=== PATIENT | male | born 1950 | race African-American/Black ===

== ENCOUNTER 2016-09-22 00:41 | Emergency (ER) | payer OTHER ==
[~2016-09-22] VITALS: Ht 180.3 cm; Wt 127.7 kg
[~2016-09-22 00:41] MED LIST: ALLERGY RELIEF10 M1 PO; ASPIR-LOW81 MG PO; CLARITIN10 M3 PO; CORRECTOL5 M1 PO; DILTIAZEM 24HR180 MG PO; FENOFIBRATE145 M1 PO; HYDROCHLOROTHIA25 MG PO; LEVOTHYROXINE50 MCG PO; MIRALAX17 GM PO; NOVOLIN N100 UNITS/ SC; NOVOLIN,HU100 UNITS1 SC; NOVOLOG PE100 UNITS/ SC; OMEPRAZOLE20 MG PO; SIMVASTATIN20 MG PO; TENORMIN25 MG PO; ULTRACET1 TABLET PO; VENTOLIN HFA18 GM IH; VITAMIN D1000 INTUN PO; ZOFRAN4 MG PO
[2016-09-22 00:51] VITALS: BP 150/89
[2016-09-22] MEDS ORDERED: GENTAMICIN SULFA5 ML BOTH EYES (02:47)
[2016-09-22] MEDS ORDERED: PERMETHRIN118 ML TP (02:47)
== END 2016-09-22 03:31 | disposition home or self-care (01) ==
LOC: EME 00:41
DX: H10.9 Unspecified conjunctivitis (principal); B86 Scabies; Z79.82 Long term (current) use of aspirin; Z79.4 Long term (current) use of insulin
CPT/HCPCS: 99281; 99283

== ENCOUNTER 2018-01-28 11:42 | Emergency (ER) | payer OTHER ==
[~2018-01-28] VITALS: Ht 177.8 cm; Wt 114.2 kg
[~2018-01-28 11:42] MED LIST changes: +GENTAMICIN SULFA5 ML BOTH EYES; +PERMETHRIN118 ML TP
[2018-01-28 12:58] LABS: APPEARANCE CLEAR ((CLEAR)); BILIRUBIN NEGATIVE; BLOOD MODERATE; COLOR YELLOW ((YELLOW)); GLUCOSE (STRIP) >=500; KETONES 5; LEUKOCYTES NEGATIVE; NITRITE NEGATIVE; PROTEIN (STRIP) >=500; UROBILINOGEN 0.2 MG/DL (0.2-1.0)
[2018-01-28 13:11] LABS: RED BLOOD CELLS 0-5 /HPF (0-5); WHITE BLOOD CELLS 0-5 /HPF (0-5)
[2018-01-28 13:12] LABS: BACTERIA RARE /HPF; EPITHELIAL CELLS NONE SEEN /HPF; HYALINE CASTS RARE /LPF; MUCUS NONE SEEN /LPF; UCUL ADDED? NO
[2018-01-28 13:12] LABS: HEMATOCRIT 42.5 % (38.0-50.0); HEMOGLOBIN 14.3 G/DL (12.5-16.6); MCH 29.5 PG (29.0-34.0); MCHC 33.6 G/DL (30.0-36.0); MCV 87.6 FL (86-99); PLATELET COUNT 317 K/uL (156-360); RBC DIS.WIDTH-CV 14.2 % (11.8-14.6); RBC DIS.WIDTH-SD 45.8 % (39-53); RED BLOOD COUNT 4.85 M/uL (4.00-5.50); WHITE BLOOD COUNT 12.5 K/uL (4.1-10.2)
[2018-01-28 13:25] LABS: ALBUMIN 4.5 g/dL (3.2-4.8)
[2018-01-28 13:26] LABS: AMYLASE 44 IU/L (1-118); CHLORIDE 101 mEq/L (99-109); POTASSIUM 4.2 mEq/L (3.7-5.4); SODIUM 141 mEq/L (136-147)
[2018-01-28 13:28] LABS: GLUCOSE 242 mg/dL (70-99); TOTAL PROTEIN 8.2 g/dL (6.4-8.3)
[2018-01-28 13:30] LABS: TOTAL BILIRUBIN 0.5 mg/dL (0.0-1.0)
[2018-01-28 13:31] LABS: ALKALINE PHOSPHATASE 74 IU/L (3-129)
[2018-01-28 13:32] LABS: GFR ESTIMATE (CALCULATED) 43 mL/min/ (58.99-99999)
[2018-01-28 13:33] LABS: AST (GOT) 10 IU/L (2-34); UREA NITROGEN (BUN) 22 mg/dL (9-23)
[2018-01-28 13:35] LABS: ALT (GPT) 9 IU/L (3-49); LIPASE 21 U/L (1.0-51.0)
[2018-01-28] MEDS ORDERED: FLAGYL500 MG PO (14:40)
[2018-01-28] MEDS ORDERED: CIPRO500 MG PO (14:40)
[2018-01-28] MEDS ORDERED: ZOFRAN4 MG PO (14:40)
[2018-01-28 14:57] VITALS: BP 130/84
== END 2018-01-28 14:59 | disposition home or self-care (01) ==
LOC: EME 11:42
DX: K58.9 Irritable bowel syndrome, unspecified (principal); R11.0 Nausea; E11.9 Type 2 diabetes mellitus without complications; Z79.4 Long term (current) use of insulin; E78.5 Hyperlipidemia, unspecified; I10 Essential (primary) hypertension; J43.9 Emphysema, unspecified; Z79.82 Long term (current) use of aspirin
CPT/HCPCS: 74176; 80053; 81003; 82150; 83690; 85027; J2405; J7030

== ENCOUNTER 2018-01-30 13:02 | Emergency (ER) | payer OTHER ==
[~2018-01-30] VITALS: Ht 177.8 cm; Wt 119.4 kg
[~2018-01-30 13:02] MED LIST changes: +CIPRO500 MG PO; +FLAGYL500 MG PO
[2018-01-30 14:13] LABS: HEMATOCRIT 43.8 % (38.0-50.0); MCH 29.5 PG (29.0-34.0); MCHC 34.2 G/DL (30.0-36.0); MCV 86.2 FL (86-99); PLATELET COUNT 236 K/uL (156-360); RBC DIS.WIDTH-CV 13.8 % (11.8-14.6); RBC DIS.WIDTH-SD 43.8 % (39-53); RED BLOOD COUNT 5.08 M/uL (4.00-5.50)
[2018-01-30 14:24] LABS: ALBUMIN 3.8 g/dL (3.2-4.8); CHLORIDE 102 mEq/L (99-109); POTASSIUM 4.1 mEq/L (3.7-5.4); SODIUM 140 mEq/L (136-147)
[2018-01-30 14:26] LABS: GLUCOSE 152 mg/dL (70-99); TOTAL PROTEIN 7.5 g/dL (6.4-8.3)
[2018-01-30 14:28] LABS: TOTAL BILIRUBIN 0.5 mg/dL (0.0-1.0)
[2018-01-30 14:30] LABS: ALKALINE PHOSPHATASE 62 IU/L (3-129); CREATININE 2.4 mg/dL (0.6-1.3); GFR ESTIMATE (CALCULATED) 35 mL/min/ (58.99-99999)
[2018-01-30 14:31] LABS: UREA NITROGEN (BUN) 30 mg/dL (9-23)
[2018-01-30 14:32] LABS: AST (GOT) 14 IU/L (2-34)
[2018-01-30 14:33] LABS: ALT (GPT) 10 IU/L (3-49)
[2018-01-30 16:03] LABS: TROP-I INTERPRETATION NEGATIVE; TROPONIN-I 0.02 ng/mL (0.0-0.30)
[2018-01-30 18:02] VITALS: BP 105/70
[2018-01-30] MEDS ORDERED: FLAGYL500 MG PO (18:14)
[2018-01-30] MEDS ORDERED: CIPRO500 MG PO (18:14)
== END 2018-01-30 18:47 | disposition home or self-care (01) ==
LOC: EME 13:02
PROVIDERS: Emergency Medicine
DX: K51.30 Ulcerative (chronic) rectosigmoiditis without complications (principal); E11.9 Type 2 diabetes mellitus without complications; Z79.4 Long term (current) use of insulin; J43.9 Emphysema, unspecified; I10 Essential (primary) hypertension; E78.5 Hyperlipidemia, unspecified; Z86.69 Personal history of other diseases of the nervous system and sense organs
CPT/HCPCS: 71045; 74176; 74177; 80053; 83605; 84484; 85027; 87040; 93005; 99281; 99285; J1956; J7030; S0030

== ENCOUNTER 2018-02-13 00:20 | Emergency (ER) | payer OTHER ==
[~2018-02-13] VITALS: Ht 180.3 cm; Wt 120.6 kg
[2018-02-13 00:53] LABS: BASOPHIL (%) 0.8 % (0-1); BASOPHIL COUNT 0.1 K/uL (0-0.1); EOSINOPHIL (%) 3.5 % (0-5); EOSINOPHIL COUNT 0.3 K/uL (0-0.3); HEMATOCRIT 38.4 % (38.0-50.0); HEMOGLOBIN 12.9 G/DL (12.5-16.6); IMMATURE GRANULOCYTE (%) 0.8 % (0.0-0.7); LYMPHOCYTE (%) 16.3 % (15-42); LYMPHOCYTE COUNT 1.5 K/uL (1.0-2.8); MCH 29.7 PG (29.0-34.0); MCHC 33.6 G/DL (30.0-36.0); MCV 88.3 FL (86-99); MONOCYTE (%) 8.6 % (3-12); MONOCYTE COUNT 0.8 K/uL (0-0.8); NEUTROPHIL COUNT 6.5 K/uL (1.8-6.4); PLATELET COUNT 263 K/uL (156-360); RED BLOOD COUNT 4.35 M/uL (4.00-5.50); WHITE BLOOD COUNT 9.2 K/uL (4.1-10.2)
[2018-02-13 01:06] LABS: CHLORIDE 108 mEq/L (99-109); POTASSIUM 3.7 mEq/L (3.7-5.4); SODIUM 141 mEq/L (136-147)
[2018-02-13 01:08] LABS: GLUCOSE 139 mg/dL (70-99)
[2018-02-13 01:12] LABS: CREATININE 1.8 mg/dL (0.6-1.3); GFR ESTIMATE (CALCULATED) 49 mL/min/ (58.99-99999)
[2018-02-13 01:13] LABS: UREA NITROGEN (BUN) 10 mg/dL (9-23)
[2018-02-13 01:14] LABS: CREATINE KINASE 93 IU/L (1-294)
[2018-02-13 04:32] VITALS: BP 118/71
== END 2018-02-13 04:33 | disposition home or self-care (01) ==
LOC: EME 00:20
PROVIDERS: Emergency Medicine
DX: M25.562 Pain in left knee (principal); M25.561 Pain in right knee; R53.1 Weakness; E11.9 Type 2 diabetes mellitus without complications; Z79.4 Long term (current) use of insulin; E78.5 Hyperlipidemia, unspecified; I10 Essential (primary) hypertension; J43.9 Emphysema, unspecified; Z86.69 Personal history of other diseases of the nervous system and sense organs
CPT/HCPCS: 72131; 73564; 80048; 82550; 85025; 99281; 99284

== ENCOUNTER 2018-02-27 08:28 | Inpatient (IN) | payer OTHER ==
[~2018-02-27] VITALS: Ht 177.8 cm; Wt 120.1 kg
[2018-02-27 09:51] LABS: BASOPHIL (%) 0.6 % (0-1); BASOPHIL COUNT 0.1 K/uL (0-0.1); EOSINOPHIL (%) 3.9 % (0-5); EOSINOPHIL COUNT 0.3 K/uL (0-0.3); HEMOGLOBIN 12.7 G/DL (12.5-16.6); IMMATURE GRANULOCYTE (%) 0.7 % (0.0-0.7); LYMPHOCYTE (%) 18.1 % (15-42); LYMPHOCYTE COUNT 1.5 K/uL (1.0-2.8); MCH 28.9 PG (29.0-34.0); MCHC 32.6 G/DL (30.0-36.0); MCV 88.8 FL (86-99); MONOCYTE (%) 12.4 % (3-12); NEUTROPHIL (%) 64.3 % (45-76); NEUTROPHIL COUNT 5.3 K/uL (1.8-6.4); PLATELET COUNT 234 K/uL (156-360); RBC DIS.WIDTH-CV 14.9 % (11.8-14.6); RED BLOOD COUNT 4.39 M/uL (4.00-5.50); WHITE BLOOD COUNT 8.2 K/uL (4.1-10.2)
[2018-02-27 09:55] LABS: INTER. NORMALIZED RATIO 1.1
[2018-02-27 09:58] LABS: PTT 28.4 SEC (25-37)
[2018-02-27 10:09] LABS: CHLORIDE 108 mEq/L (99-109); POTASSIUM 3.8 mEq/L (3.7-5.4); SODIUM 141 mEq/L (136-147)
[2018-02-27 10:10] LABS: GLUCOSE 180 mg/dL (70-99)
[2018-02-27 10:14] LABS: CREATININE 1.9 mg/dL (0.6-1.3); GFR ESTIMATE (CALCULATED) 46 mL/min/ (58.99-99999)
[2018-02-27 10:15] LABS: UREA NITROGEN (BUN) 13 mg/dL (9-23)
[2018-02-27 10:18] LABS: TROP-I INTERPRETATION INDETERMINATE; TROPONIN-I 0.43 ng/mL (0.0-0.30)
[2018-02-27] MEDS ORDERED: FISH OIL 1,0001 EA11 PO (13:32)
[2018-02-27 13:55] LABS: HDL CHOLESTEROL 34 MG/DL (Desirable>=40); LDL CHOLESTEROL 63 mg/dL (Desirable<100); NON-HDL CHOLESTEROL 85 mg/dL (Desirable<160); TOTAL CHOLESTEROL 119 mg/dL (Desirable<200); TRIGLYCERIDES 112 MG/DL (Normal: <150)
[2018-02-27 15:30] VITALS: BP 133/70
[2018-02-27 18:56] LABS: TROP-I INTERPRETATION INDETERMINATE; TROPONIN-I 0.37 ng/mL (0.0-0.30)
[2018-02-27 19:30] VITALS: BP 115/76
[2018-02-27 23:07] VITALS: BP 128/69
[2018-02-28 02:03] LABS: TROP-I INTERPRETATION NEGATIVE; TROPONIN-I 0.19 ng/mL (0.0-0.30)
[2018-02-28 03:26] VITALS: BP 119/72
[2018-02-28 07:00] VITALS: BP 116/76
[2018-02-28 07:14] LABS: HEMATOCRIT 36.5 % (38.0-50.0); HEMOGLOBIN 12.1 G/DL (12.5-16.6); MCH 29.6 PG (29.0-34.0); MCHC 33.2 G/DL (30.0-36.0); MCV 89.2 FL (86-99); PLATELET COUNT 241 K/uL (156-360); RBC DIS.WIDTH-SD 49.5 % (39-53); RED BLOOD COUNT 4.09 M/uL (4.00-5.50); WHITE BLOOD COUNT 8.1 K/uL (4.1-10.2)
[2018-02-28 09:41] LABS: CHLORIDE 106 MEQ/L (99-109); GFR ESTIMATE (CALCULATED) > 59 mL/min/ (58.99-99999); GLUCOSE 210 mg/dL (70-99); SODIUM 140 MEQ/L (136-147); UREA NITROGEN (BUN) 14 mg/dL (9-23)
[2018-02-28 09:42] LABS: CREATININE 1.4 MG/DL (0.6-1.3)
[2018-02-28 12:15] VITALS: BP 115/74
[2018-02-28 12:43] LABS: HEMOGLOBIN A1c (GLYCOHEMOGLOB) 7.6 % (Below 5.7)
[2018-02-28 17:30] VITALS: BP 109/66
[2018-02-28 19:21] VITALS: BP 95/88
[2018-03-01] VITALS: BP 125/76
[2018-03-01 04:16] VITALS: BP 123/71
[2018-03-01 06:56] LABS: MCV 89.8 FL (86-99); PLATELET COUNT 238 K/uL (156-360)
[2018-03-01 07:00] VITALS: BP 122/73
[2018-03-01 07:12] LABS: CHLORIDE 105 MEQ/L (99-109); CREATININE 1.7 MG/DL (0.6-1.3); GFR ESTIMATE (CALCULATED) 52 mL/min/ (58.99-99999); POTASSIUM 3.8 MEQ/L (3.7-5.4); SODIUM 139 MEQ/L (136-147); UREA NITROGEN (BUN) 16 mg/dL (9-23)
[2018-03-01 07:13] LABS: GLUCOSE 104 mg/dL (70-99)
[2018-03-01 11:20] VITALS: BP 115/66
[2018-03-01 15:01] VITALS: BP 119/71
[2018-03-01 19:27] VITALS: BP 116/76
[2018-03-02] VITALS (7 sets, daily range): BP systolic 118–147; BP diastolic 66–83
[2018-03-02 02:44] LABS: HEMATOCRIT 37.5 % (38.0-50.0); HEMOGLOBIN 12.5 G/DL (12.5-16.6); MCH 29.8 PG (29.0-34.0); MCHC 33.3 G/DL (30.0-36.0); MCV 89.5 FL (86-99); PLATELET COUNT 241 K/uL (156-360); RBC DIS.WIDTH-CV 14.6 % (11.8-14.6); RBC DIS.WIDTH-SD 48.3 % (39-53); RED BLOOD COUNT 4.19 M/uL (4.00-5.50); WHITE BLOOD COUNT 8.5 K/uL (4.1-10.2)
[2018-03-02 02:52] LABS: INTER. NORMALIZED RATIO 1.1
[2018-03-02 02:54] LABS: PTT 46.2 SEC (25-37)
[2018-03-02 02:57] LABS: CHLORIDE 105 mEq/L (99-109); MAGNESIUM 1.9 mg/dL (1.3-2.7); POTASSIUM 3.9 mEq/L (3.7-5.4); SODIUM 137 mEq/L (136-147)
[2018-03-02 02:58] LABS: GLUCOSE 154 mg/dL (70-99)
[2018-03-02 03:02] LABS: CREATININE 1.6 mg/dL (0.6-1.3); GFR ESTIMATE (CALCULATED) 56 mL/min/ (58.99-99999)
[2018-03-02 03:03] LABS: UREA NITROGEN (BUN) 15 mg/dL (9-23)
[2018-03-03 03:00] VITALS: BP 132/79
[2018-03-03 08:12] VITALS: BP 131/71
[2018-03-03 11:51] VITALS: BP 110/68
[2018-03-03 15:52] VITALS: BP 112/71
[2018-03-03 19:01] VITALS: BP 136/82
[2018-03-03 22:44] VITALS: BP 133/74
[2018-03-04 03:30] VITALS: BP 141/77
[2018-03-04 05:01] LABS: HEMATOCRIT 36.6 % (38.0-50.0); MCH 29.2 PG (29.0-34.0); MCHC 32.8 G/DL (30.0-36.0); MCV 89.1 FL (86-99); PLATELET COUNT 284 K/uL (156-360); RBC DIS.WIDTH-CV 14.4 % (11.8-14.6); RBC DIS.WIDTH-SD 47.1 % (39-53); RED BLOOD COUNT 4.11 M/uL (4.00-5.50); WHITE BLOOD COUNT 9.6 K/uL (4.1-10.2)
[2018-03-04 06:05] LABS: CHLORIDE 99 MEQ/L (99-109); CREATININE 1.4 MG/DL (0.6-1.3); GFR ESTIMATE (CALCULATED) > 59 mL/min/ (58.99-99999); GLUCOSE 181 mg/dL (70-99); MAGNESIUM 1.7 mg/dl (1.3-2.7); POTASSIUM 4.2 MEQ/L (3.7-5.4); SODIUM 137 MEQ/L (136-147); UREA NITROGEN (BUN) 15 mg/dL (9-23)
[2018-03-04 07:10] VITALS: BP 132/71
[2018-03-04 11:40] VITALS: BP 113/73
[2018-03-04] MEDS ORDERED: PRAVASTATIN SOD40 MG PO (14:32)
[2018-03-04] MEDS ORDERED: ELIQUIS5 MG PO (14:32)
[2018-03-04] MEDS ORDERED: NOVOLOG 10100 UNITS/ SC (14:32)
[2018-03-04] MEDS ORDERED: NITROSTAT0.4 MG SL (14:32)
[2018-03-04] MEDS ORDERED: LEVEMIR100 UNIT/2 SC (14:32)
[2018-03-04 14:48] VITALS: BP 136/72
== END 2018-03-04 19:10 | DRG 299 ==
LOC: EME 08:28 → 4EAST 12:51 → EDOF 12:51 → ENRESERV 12:51 → 4EAST 14:59
PROVIDERS: Emergency Medicine; Hospitalist; Internal Medicine
DX: I82.411 Acute embolism and thrombosis of right femoral vein (principal); I26.99 Other pulmonary embolism without acute cor pulmonale; J44.9 Chronic obstructive pulmonary disease, unspecified; I12.9 Hypertensive chronic kidney disease with stage 1 through stage 4 chronic kidney disease, or unspecified chronic kidney disease; N18.3 Chronic kidney disease, stage 3 (moderate); E78.5 Hyperlipidemia, unspecified; E66.01 Morbid (severe) obesity due to excess calories; Z68.37 Body mass index [BMI] 37.0-37.9, adult; Z83.3 Family history of diabetes mellitus; Z79.4 Long term (current) use of insulin; E11.22 Type 2 diabetes mellitus with diabetic chronic kidney disease; Z79.899 Other long term (current) drug therapy; K59.00 Constipation, unspecified
CPT/HCPCS: 70450; 71045; 78582; 80048; 80061; 82948; 83036; 83735; 84484; 85014; 85018; 85025; 85027; 85049; 85610; 85730; 93005; 93306; 93971; 94799; 99281; 99284; A9540; A9567; C1753; J1815